=== PATIENT | female | born 1955 | race Caucasian/White ===

== ENCOUNTER 2016-11-29 05:25 | Day surgery (SDC) | payer OTHER ==
[2016-11-25 19:09] VITALS: BMI 32.9
[~2016-11-29 05:25] MED LIST: VANCOMYCIN 1 GRAM (PRE-DOCKED) 1,000 MG/250 ML BAG IVPB ONE
[2016-11-29] MEDS ORDERED: LIDOCAINE HCL 1%, 10 MG/ML (20ML VIAL) ONE (07:16)
[2016-11-29] MEDS ORDERED: MIDAZOLAM HCL 2 MG/2 ML SINGLE DOSE VIAL ONE (07:56)
[2016-11-29] MEDS ORDERED: PROPOFOL 20 ML ONE ×2 (08:12→08:13)
[2016-11-29] MEDS ORDERED: ROCURONIUM BROMIDE 50 MG/5 ML VIAL ONE (08:12)
[2016-11-29] MEDS ORDERED: VANCOMYCIN 1 GRAM (PRE-DOCKED) 1,000 MG/250 ML BAG IVPB ONE (08:20)
[2016-11-29] MEDS ORDERED: VANCOMYCIN 1,000 MG VIAL (RESTRICTED TO ID ONLY) ONE (08:27)
[2016-11-29] MEDS ORDERED: LIDOCAINE HCL/PF 2% SDV 5ML VIAL ONE (08:27)
[2016-11-29] MEDS ORDERED: THROMBIN (BOVINE) 5,000 UNIT VIAL TP ONE (08:43)
[2016-11-29] MEDS ORDERED: BACITRACIN 50,000 UNITS VIAL NR ONE (08:43)
[2016-11-29] MEDS ORDERED: BACITRACIN 30 GM TUBE TOPICAL OINTMENT TP ONE (09:29)
[2016-11-29] MEDS ORDERED: BACITRACIN 30 GM TUBE TOPICAL OINTMENT ONE (09:31)
[2016-11-29] MEDS ORDERED: NEOSTIGMINE METHYLSULFATE 0.5 MG/ML - 10 ML MDV ONE (09:35)
--- NOTE | 2016-11-29 09:47 | OP ---
Operative Note - Note: Operative Date: 11/29/16 Pre-Operative Diagnosis: Non-funtioning SCS; generator site discomfort Operation: Partial-expansion of L T10 laminectomies for lysis for lysis of adhesion and exploration/mobilization of stimulator [employer] epidural paddle electrode; removal of paddle electrode; removal of generator from L buttock pocket; fluoroscopy Findings: paraspinal and epidural fibrosis Post-Operative Diagnosis: Same as Pre-op Surgeon: Marshall Schreiber Line Ordering Clinician: Johnnie Collier Anesthesiologist/CHIEF TECHNICIAN: Krysta Brush MD Anesthesia: General Specimens Removed: prior implants- electrode and generator Estimated Blood Loss (mls): 10
[2016-11-29] MEDS ORDERED: ONDANSETRON 4 MG/2 ML VIAL IVPB PRN (09:48)
[2016-11-29] MEDS ORDERED: oxyCODONE HCL 5 MG TABLET PO PRN (09:48)
[2016-11-29] MEDS ORDERED: HYDROmorphone HCL CARPU-JECT 1 MG/1 ML DISP.SYRIN IVPUSH PRN (09:50)
--- NOTE | 2016-11-29 09:53 | PN ---
Progress Note (short form) - Note Progress Note: NEUROSURGERY In PACU PE: AF, VSS; O2 sat 100% General- unremarkable Motor- as pre-op without change (mild L IP weakness); Sensation- intact LT Stable neurologically Wound care/discharge instructions given Rx previously given to pt (oxycodone) for post-op pain control Intra-op findings d/w daughter Per ACU and ASU protocol All questions answered
[2016-11-29] MEDS ORDERED: D5-1/2NS+20 MEQ KCL - 1,000 ML IV SCH (10:00)
[2016-11-29] MEDS ORDERED: PROMETHAZINE HCL 25 MG/1 ML VIAL IVPUSH PRN (10:14)
[2016-11-29] MEDS ORDERED: ONDANSETRON 4 MG/2 ML VIAL IVPUSH PRN (10:14)
[2016-11-29] MEDS ORDERED: LACTATED RINGERS SOLUTION 1,000 ML IV SCH (10:15)
[2016-11-29 11:06] VITALS: TEMP 97.5
--- NOTE | 2016-11-29 11:10 | SURG ---
Surgery Hard Tile Setter Note Hard Tile Setter: Johnnie Collier PA-C Date of Service: 11/29/16 Diagnosis: Non-funtioning SCS; generator site discomfort Procedure: Partial-expansion of L T10 laminectomies for lysis of adhesion and exploration/ mobilization of stimulator Med[employer]onic epidural paddle electrode; removal of paddle electrode; removal of generator from L buttock pocket; fluoroscopy I was present for the entirety of the operative procedure. For further detail, please refer to operative report. Visit type - Case Type Case Type: Scheduled Admission - New patient This patient is new to me today: Yes Date on this admission: 11/29/16
[2016-11-29] MEDS ORDERED: oxyCODONE HCL 5 MG TABLET ONE (12:03)
[2016-11-29 12:58] VITALS: BP 139/92; PULSE 62
--- NOTE | 2016-11-30 08:17 | OP ---
PROCEDURE: 1. Expansion of prior T10 thoracic laminectomy including lysis of adhesion for decompression of the thecal sac as well as mobilization/isolation of the epidural Paddle electrode from [employer] (64081-03). 2. Removal of thoracic epidural Paddle electrode (00520). 3. Removal of electric pulse generator from a left buttock incision (28113). 4. Intraoperative fluoroscopy for localization and high defecation (45518-23) DATE OF OPERATION: 11/29/2016 PREOPERATIVE DIAGNOSIS: 1. Non-functional spinal cord stimulator 2. Localized left buttock generator site pain 3. Multilevel degenerative disc disease 4. Thoracic degenerative scoliosis POSTOPERATIVE DIAGNOSIS: 1. Non-functional spinal cord stimulator 2. Localized left buttock generator site pain 3. Multilevel degenerative disc disease 4. Thoracic degenerative scoliosis ATTENDING SURGEON: Marshall Wadsworth MD ANESTHESIA: General, endotracheal ANESTHESIOLOGIST: Krysta Curry MD ESTIMATED BLOOD LOSS: 10 mL FINDINGS: 1. Moderate paraspinal and epidural fibrosis. 2. No retained foreign body after stimulator removal. INDICATION: The patient is a 61-year-old female with chronic intractable lower back pain, lumbar radiculopathy. She had previously had a spinal cord stimulator implanted a couple of years earlier. Initially, she had satisfactory coverage, but over the years, she has developed localized tenderness at the site of the generator without skin erosion. Coverage was also eventually lost despite multiple adjustments of the SCS. She wanted to have the stimulator removed. She understands that removing the stimulator will not help her chronic lower back pain or lumbar radiculopathy. The stimulator localizer tenderness may be improved after removal of the indwelling implant. The risks of the procedure include, but are not limited to, bleeding, infection, dural tear with CSF leak, neurologic injury including thromboembolic risk and other risks of general anesthesia. The patient understands the indication for the procedure. Procedure in detail, risks, benefits and alternatives of treatment for her condition, and wishes to proceed. No guarantees given for favorable outcome. Preoperative medical clearance was obtained. PROCEDURE IN DETAIL: After the patient was taken to the operating room, she was placed in a supine position after general anesthesia was thoroughly induced and appropriate lines were placed. The patient was turned to a prone position on a Ric frame. All pressure points were checked and padded. The lower thoracic as well as left-sided buttock incision were cleaned with alcohol and prepped with Betadine. The patient was sterilely prepped and draped. All pressure points were checked and padded. O2 saturation of bilateral lower extremities was all 100%. After patient was turned from the prone position, the left buttock incision was opened with a number 10 blade, and the generator box was skeletonized. The generator was then placed in the lap sponge, and the antibiotic-soaked lap sponge was placed in the left buttock incision. At this point, the thoracic incision was opened. The underlying anchoring silk suture was cut with Romero scissors. The anchor was then followed toward the epidural space. Moderate paraspinal fibrosis was noted. A combination of sharp and blunt dissection was used to trace the electrode toward the epidural space. Because of moderate epidural and paraspinal fibrosis, further laminectomy of left side T8 was needed as well as the mid-central portion of the spinal canal achieved with a combination of high-speed pneumatic drill, angle curettes and Kerrison rongeur. The epidural paddle electrode was identified and was mobilized with a combination of dental tool as well angle curettes. This portion of the procedure was performed with use of loupe magnification. Epidural hemostasis obtained using bipolar electrocautery. The wound was irrigated with antibiotic-containing irrigation. A fluoroscope was used to visualize the paddle electrode, which was in excellent position prior to removal. Under gentle/no pressure, the epidural electrode was mobilized from the surrounding and safely and smoothly removed without any significant difficulties. There was excellent epidural hemostasis. The wound was irrigated with a copious amount of irrigation at this time. The epidural electrode wire was then cut near the left buttock incision, and the wire was pulled toward the thoracic incision. A final fluoroscopic image was obtained, and there was no retained foreign body noted. The lap sponge was removed from the left buttock incision. Both of the incisions were irrigated with antibiotic-containing irrigation at this time. The needle/lap counts were correct prior to closure. The lab and sponge counts were completed prior to closure. The dorsothoracic fascia was closed with 0 Vicryl sutures. The superior fascia closed with 3-0 Vicryl sutures of both incisions. Skin was closed with 4-0 Vicryl running subcuticular suture. Steri-Strips and sterile surgical dressing were applied. The patient tolerated the procedure well and was turned back to the supine position moving bilateral lower extremities well. OR timeout procedure was followed. The patient had a stable neurological examination in the recovery room. The daughter was updated as to the intraoperative finding. The patient received 1 dose of 1 gm Ancef prior to the incision. MARSHALL WADSWORTH M.D. BRENNON/[id number] MTDD
--- NOTE | 2016-11-30 10:24 | PATH ---
Surgical Pathology Report Patient Name: HANNAH FISHMAN Med. Rec. #: [id number] /Age/Gender: 1955 (Age: 61) / F Account: [id number] Location: [facility] Taken: 11/29/2016 Received: 11/29/2016 Reported: 11/30/2016 Physicians: Marshall Schreiber M.D. Specimen(s) Received GENERATOR & PADDLE (SPINAL CORD) Clinical History Nonfunctioning spinal cord generator Final Diagnosis ENTERPRISE MOBILITY ARCHITECT, REMOVAL: ENTERPRISE MOBILITY ARCHITECT CONSISTENT WITH SPINAL CORD GENERATOR AND PADDLE (GROSS ONLY). Electronically Signed Jt Lynn M.D. Gross Description Received fresh, labeled "spinal cord generator and paddle," is a 5.4 x 5.2 x 0.8 cm landon metallic device, consistent with a generator. The specimen has the following inscription: "[employer] SureScan MRI SN:[id number]." The specimen displays 2 wires extending from one aspect, averaging 25 cm in length. Also received within the same container is a 5.5 x 0.7 x 0.2 cm rectangular device with 2 attached wires. The attached wires average 30 cm in length. No soft tissue is present. No sections are submitted, gross only. 11/29/2016 saudi11/29/2016
== END 2016-11-29 13:10 | disposition home or self-care (01) ==
LOC: JASU-SURG 05:25
PROVIDERS: ATTEND Neurological Surgery
PROC: 0JPT0MZ Removal of Stimulator Generator from Trunk Subcutaneous Tissue and Fascia, Open Approach (ICD-10-PCS; 2016-11-29)
PROC: 0JPT0MZ Removal of Stimulator Generator from Trunk Subcutaneous Tissue and Fascia, Open Approach (ICD-10-PCS; 2016-11-29)
PROC: 00PU0MZ Removal of Neurostimulator Lead from Spinal Canal, Open Approach (ICD-10-PCS; principal; 2016-11-29 08:00)
DX: T85.193A Other mechanical complication of implanted electronic neurostimulator, generator, initial encounter (principal); M51.16 Intervertebral disc disorders with radiculopathy, lumbar region; M54.89 Other dorsalgia; M41.84 Other forms of scoliosis, thoracic region
CPT/HCPCS: 76000-TC; 86850; 86900; 86901; 88300-TC; 94760

== ENCOUNTER 2024-02-20 04:16 | Day surgery (SDC) | payer OTHER ==
[2024-02-15 10:31] VITALS: BMI 29.0
[2024-02-20] MEDS ORDERED: MIDAZOLAM HCL 2 MG/2 ML SINGLE DOSE VIAL ONE (11:07)
[2024-02-20] MEDS ORDERED: PROPOFOL 20 ML ONE (11:07)
[2024-02-20] MEDS ORDERED: FENTANYL CITRATE/PF 50 MCG/ML VIAL ONE ×6 (11:08→13:32)
[2024-02-20] MEDS ORDERED: CLINDAMYCIN PHOSPHATE 600 MG/4 ML VIAL ONE ×2 (11:21→12:02)
[2024-02-20] MEDS ORDERED: LIDOCAINE 1%/EPI 1:100000 (20 ML MULTI DOSE VIAL) ONE (11:23)
[2024-02-20] MEDS ORDERED: BACITRACIN ZINC 15 GM TUBE TOPICAL OINTMENT ONE ×2 (11:29→15:54)
[2024-02-20] MEDS: CLINDAMYCIN PHOSPHATE 600 MG/4 ML VIAL IVPB ONE (11:58)
[2024-02-20] MEDS: LIDOCAINE 1%/EPI 1:100000 (20 ML MULTI DOSE VIAL) IJ ONE (12:07)
[2024-02-20] MEDS: BACITRACIN ZINC 15 GM TUBE TOPICAL OINTMENT TP ONE ×2 (12:24→18:14)
[2024-02-20] MEDS ORDERED: ONDANSETRON 4 MG/2 ML VIAL IVPUSH PRN (12:37)
[2024-02-20] MEDS ORDERED: ACETAMINOPHEN INJECTION 100 ML IVPB ONE (12:39)
[2024-02-20] MEDS: ACETAMINOPHEN 1000 MG/100 ML BAG IVPB ONE ×2 (12:41→14:42)
[2024-02-20] MEDS ORDERED: oxyCODONE HCL 5 MG TABLET ONE (16:27)
[2024-02-20] MEDS: oxyCODONE HCL 5 MG TABLET PO PRN (16:39)
[2024-02-20] MEDS: LACTATED RINGERS SOLUTION 1,000 ML IV SCH (18:13)
[2024-02-20 18:43] LABS: HEMATOCRIT 39.4 % (32.4-45.2); MCHC 33.1 g/dl (32.0-36.0); MEAN CELL VOLUME 90.9 fl (80-96); MEAN PLT VOLUME 10.5 fl (7.5-11.1); PLATELET COUNT 212 10^3/uL (134-434); RBC 4.33 M/mm3 (3.60-5.2); RDW 16.6 % (11.6-15.6); WHITE BLOOD COUNT 9.8 K/mm3 (4.0-10.0)
[2024-02-20 18:56] LABS: POTASSIUM 4.1 mmol/L (3.5-5.1)
[2024-02-20 18:57] LABS: CALCIUM 8.7 mg/dL (8.5-10.1)
[2024-02-20 18:58] LABS: BLOOD UREA NITROGEN 18.2 mg/dL (7-18)
[2024-02-20 19:01] LABS: CREATININE 0.9 mg/dL (0.55-1.3)
[2024-02-21 02:07] VITALS: RESP 18
[2024-02-21] MEDS: ACETAMINOPHEN 500 MG TABLET (FP) PO PRN (03:12)
[2024-02-21 06:03] VITALS: BP 137/79; PULSE 58; TEMP 98.1
[2024-02-21 08:03] LABS: HEMOGLOBIN 12.4 GM/dL (10.7-15.3); MCH 30.4 pg (25.7-33.7); MCHC 33.4 g/dl (32.0-36.0); MEAN CELL VOLUME 91.1 fl (80-96); MEAN PLT VOLUME 10.9 fl (7.5-11.1); PLATELET COUNT 187 10^3/uL (134-434); RBC 4.06 M/mm3 (3.60-5.2); RDW 16.2 % (11.6-15.6); WHITE BLOOD COUNT 8.7 K/mm3 (4.0-10.0)
== END 2024-02-21 11:30 | disposition home or self-care (01) ==
LOC: JASUSAT 04:16 → JASU-SURG 04:16 → SUATTDRO 04:16 → J8W 17:51 → JASUSAT 02-21 11:30
PROVIDERS: ATTEND Nurse Practitioner Family
PROC: 0TSD0ZZ Reposition Urethra, Open Approach (ICD-10-PCS; principal; 2024-02-20 10:00)
DX: N39.3 Stress incontinence (female) (male) (principal)
CPT/HCPCS: 57288; C1771; 36415; 80048; 85027; 94760; J0131